=== PATIENT | male | born 1955 | race Native Hawaiian/Other Pacific Islander ===

== ENCOUNTER 2018-04-22 11:19 | Outpatient (CLI) | payer OTHER | END 2018-04-22 20:39 | disposition home or self-care (01) | LOC: LABW 11:19 | PROVIDERS: Specialist | DX: I25.10 Atherosclerotic heart disease of native coronary artery without angina pectoris (principal); E78.5 Hyperlipidemia, unspecified; Z79.899 Other long term (current) drug therapy | CPT/HCPCS: 36415; 80061; 80076 ==

== ENCOUNTER 2019-04-14 08:49 | Outpatient (CLI) | payer OTHER | END 2019-04-14 19:44 | disposition home or self-care (01) | LOC: LABW 08:49 | PROVIDERS: Nurse Practitioner Adult Health | DX: I25.10 Atherosclerotic heart disease of native coronary artery without angina pectoris (principal); E78.2 Mixed hyperlipidemia; Z79.899 Other long term (current) drug therapy | CPT/HCPCS: 36415; 80061; 80076 ==

== ENCOUNTER 2021-02-20 14:17 | Outpatient (CLI) | payer OTHER | END 2021-02-20 19:47 | disposition home or self-care (01) | LOC: RAD 14:17 | PROVIDERS: ATTEND Nurse Practitioner Family | DX: R06.02 Shortness of breath (principal); M25.511 Pain in right shoulder ==

== ENCOUNTER 2022-05-05 12:19 | Outpatient (CLI) | payer OTHER | END 2022-05-05 20:49 | disposition home or self-care (01) | LOC: LABW 12:19 | PROVIDERS: ATTEND Nurse Practitioner | DX: E78.49 Other hyperlipidemia (principal); I25.10 Atherosclerotic heart disease of native coronary artery without angina pectoris | CPT/HCPCS: 36415; 80061; 80076 ==